=== PATIENT | female | born 2000 | race Caucasian/White ===

== ENCOUNTER 2022-05-31 09:02 | Emergency (ER) | payer OTHER, SELFPAY ==
--- NOTE | 2022-05-31 09:07 | ED.URI ---
HPI - URI/Sore Throat General Chief Complaint: Upper Respiratory Infection Stated Complaint: RUNNY NOSE/COUGH Time Seen by Provider: 05/31/22 09:21 Source: patient and RN notes reviewed Mode of arrival: ambulatory Limitations: no limitations History of Present Illness HPI Narrative: 21-year-old female presents concern for 2 to 3-day history of rhinorrhea, nasal congestion, cough, sore throat. Reports she is taken NyQuil without relief. Reports she is concerned because she gets a sinus infection every year. She denies known sick contacts. She denies fever, body aches, chills, sweats, shortness of breath. MD elicited complaint: cough, rhinorrhea and nasal congestion Related Data Home Medications Medication Instructions Recorded Confirmed fluticasone propionate 50 1 spray intranasal DAILY 11/15/20 05/31/22 mcg/actuation nasal spray,suspension multivitamin 1 tablet PO DAILY 11/15/20 05/31/22 spironolactone 100 mg tablet 100 mg PO QAM 05/15/22 05/31/22 Allergies Allergy/AdvReac Type Severity Reaction Status Date / Time No Known Allergies Allergy Mild Verified 05/31/22 09:09 Review of Systems Review of Systems: CONSTITUTIONAL: Denies malaise, chills, sweats, or fever. EYES: Denies visual changes, redness, or discharge. ENT: Reports rhinorrhea, congestion, and sore throat. Denies sinus pain, otalgia CARDIOVASCULAR: Denies chest pain, palpitations, or edema. RESPIRATORY: Reports cough. Denies dyspnea. GASTROINTESTINAL: Denies abdominal pain, nausea, vomiting, diarrhea SKIN: Denies rash or itching. MUSCULOSKELETAL: Denies myalgia. NEUROLOGIC: Denies headache. All systems reviewed & are unremarkable except as noted in HPI and below [facility] Past Medical History Medical History Abdominal bloating Anxiety Family history of celiac disease GERD without esophagitis Seasonal allergies Stress and adjustment reaction Surgical History Surgical History History of tonsillectomy and adenoidectomy 2000 Family History Family History Grandparent Celiac disease Breast cancer Mother Hypertension Anxiety TIA (transient ischemic attack) Father Anxiety Hypertension Other Breast cancer Other Breast cancer Social History Social History Smoking status: Never smoker Alcohol intake: current Alcohol use details: 2x a month Substance use: never Substance use type: does not use Additional living arrangements comments: Mom Gender identity (if verbalized by the patient): Female Comments At time of signature, agree with nursing past medical, surgical, social and family history. There is no relevant family history pertinent to the presenting complaint Exam Narrative: GENERAL: Well-appearing, well-nourished, and in no acute distress. HEAD: Normocephalic EYES: PERRLA, conjunctivae clear ENT: Nares clear, clear discharge. Mucous membranes moist. TM pearly jones with dull light reflex bilaterally; no tragal tenderness. Oropharynx not erythematous without lesions. Tonsils not enlarged and without exudate, no drooling, no hoarseness, no trismus, uvula midline. NECK: Supple. No lymphadenopathy CHEST: Clear to auscultation, breath sounds equal. No wheezing, rhonchi, rales, or stridor. No respiratory distress, speaks in full sentences. HEART: Regular rate and rhythm. No murmur heard. SKIN: Warm, dry, no rash. NEURO: Alert and oriented x3. PSYCH: Normal mood and affect Course Course Emergency Course: Patient is aware of diagnosis, understands and agrees to treatment plan. Anticipatory guidance given. Patient agrees to follow-up as directed and is aware of reasons to seek care at the emergency department. Portions of this record may have been created with voice recognition softwar
[2022-05-31 09:14] VITALS: BP 124/84; PULSE 87; RESP 16; TEMP 36.8; O2SAT 100
== END 2022-05-31 09:59 | disposition home or self-care (01) ==
PROVIDERS: Emergency Provider Nurse Practitioner; PCP Family Medicine
DX: J06.9 Acute upper respiratory infection, unspecified (principal); Z20.822 Contact with and (suspected) exposure to COVID-19; K21.9 Gastro-esophageal reflux disease without esophagitis; F41.9 Anxiety disorder, unspecified
CPT/HCPCS: 87426; 87804; 99213; C9803; G0463